=== PATIENT | male | born 1985 | race Caucasian/White ===

== ENCOUNTER 2020-12-09 09:22 | Emergency (ER) | payer MEDICAID ==
[~2020-12-09] VITALS: Ht 177.8 cm; Wt 91.0 kg
[2020-12-09] MEDS ORDERED: FAMOTIDINE 20MG/2ML VIAL IV ONE (10:00)
[2020-12-09] MEDS ORDERED: METHYLPREDNISOLONE SOD SUCC 125 MG/2 ML VIAL IV ONE (10:00)
[2020-12-09] MEDS ORDERED: DIPHENHYDRAMINE 50MG/ML VIAL IV ONE (10:00)
[2020-12-09] MEDS ORDERED: METHYLPREDNISOLONE SOD SUCC 125 MG/2 ML VIAL IV NR (10:30)
[2020-12-09] MEDS ORDERED: DIPH25CA83 PO (11:47)
[2020-12-09 13:30] VITALS: BP 145/88
== END 2020-12-09 14:31 ==
LOC: ER 09:25
DX: T78.40XA Allergy, unspecified, initial encounter (principal); X58.XXXA Exposure to other specified factors, initial encounter; J45.909 Unspecified asthma, uncomplicated
CPT/HCPCS: 96374; 96375; 99284; J1200; J2930; J3490